=== PATIENT | female | born 1970 | race Caucasian/White ===

== ENCOUNTER 2020-08-27 23:21 | Emergency (ER) | payer BC, SELFPAY ==
--- NOTE | 2020-08-27 23:26 | W.ED.GENAD ---
Discharge Plan Disposition Patient Disposition: HOME Condition: Good Discharge Details Clinical Impression: Allergic reaction caused by a drug Primary Care Provider: Falguni,Local ED Provider: Scott Kimbroughs and New Rx's Prescriptions: New prednisone 20 mg tablet 40 mg PO DAILY Qty: 6 RF: 0 Continued sertraline 100 mg Tablet 100 mg PO DAILY RF: 0 fluticasone propionate 50 mcg/actuation [place],Suspension 2 spray INTRANASAL BID RF: 0 Breo Ellipta 200-25 mcg/dose Blister With Device 1 inh INHALATION DAILY RF: 0 Discharge Instructions Instructions: General Allergic Reaction (ED) Additional Instructions: Always read the labels of any future multisymptom medications you may take. Please hand picker your prescription for prednisone tomorrow morning. May take Benadryl 50 mg orally every 6 hours as needed for allergic symptoms. Follow-up with primary care when you return home if continued problems. Return to ED for any increasing shortness of breath, throat swelling, chest pain, syncope, other Medical Decision Making Patient presenting with allergic reaction to ibuprofen. She has Samter's triad with asthma, nasal polyps and aspirin/NSAID sensitivity. Did not realize she was taking ibuprofen. IV established. Benadryl, Pepcid, Solu-Medrol ordered. Will observe on monitor for. Currently no wheezing appreciated. 1 AM?marked improvement and patient feels back to normal. No further congestion/runny nose, facial swelling, tightening sensation improved. Vital signs remained normal. We will plan to discharge home at this time. Prednisone burst over the next 3 days. Benadryl 50 mg every 6 hours as needed as needed. Discussed reading all labels on medications before taking in the future. Return to ED if any issues while here, plans to return back home on Friday HPI General Mode of arrival: ambulatory. Date/Time Provider Initiated Documentation: 08/27/20 23:26. Limitations to Documentation: no limitations. Information obtained by: patient and RN notes reviewed. HPI Narrative: Patient presents to the ED with allergic reaction to ibuprofen. Patient took medication for allergies due to all the pollen in the air. She thought this was just Sudafed not realizing that it was a combination product. About an hour after taking this started to develop allergic reaction. She has known reaction to nonsteroidals and has the triad of nasal polyps, asthma and NSAID allergy. Patient now having runny nose/congestion, facial swelling, throat tightness, mild trouble breathing. She denies chest pain or lightheadedness. She has no GI symptoms. She did not take anything else at home prior to coming in. Related Data Home Medications Medication Instructions Recorded Confirmed sertraline 100 mg PO DAILY 08/27/20 08/28/20 Breo Ellipta 1 inh INHALATION DAILY 08/28/20 08/28/20 fluticasone propionate 2 spray INTRANASAL BID 08/28/20 08/28/20 prednisone 40 mg PO DAILY #6 tab 08/28/20 Previous Rx's Medication Instructions Recorded prednisone 40 mg PO DAILY #6 tab 08/28/20 Allergies Allergy/AdvReac Type Severity Reaction Status Date / Time NSAIDS (Non-Steroidal Allergy Severe Swelling/Ed Verified 08/27/20 23:49 Anti-Inflamma elda Penicillins Allergy Severe Verified 08/27/20 23:49 Review of Systems Narrative: As documented in HPI otherwise negative as below. Const: no fever, chills, weakness Resp: no cough, pleuritic pain CV: no CP, diaphoresis, syncope GI: no abdominal pain, nausea, vomiting, diarrhea Neuro: no headache, numbness, focal weakness, confusion [facility] Medical History Asthma Samter's triad Surgical History S/P sinus surgery Social History Smoking/Tobacco Use Status: Never Smoking risk assessment performed?: Yes Alcohol Intake: never Drug use: Never Substance use type: does not use Details: Has had both Phizer vaccines, second shot was about 1 month ago. Exam Narrative Exam Narrative: Const: WDWN female in NAD. HEENT: NC/AT. Mild facial swelling noted. Lips normal. Tongue normal. Mild uvula edema. Eyes: Normal conjunctiva and sclera. Neck: Supple. Trachea midline. Lungs: Normal respiratory effort. Lungs are clear. No wheezing. Cor: RRR without murmur/gallop. Good radial pulses. Neuro: A+O x 3. Normal speech, mentation, gait. Cranial nerves II - XII grossly intact. No gross motor or sensory deficit. Ext: No C/C/E. Skin: Warm and dry without rash.
[2020-08-27 23:27] VITALS: BP 138/84; PULSE 116; RESP 18; TEMP 36.6; O2SAT 96
[2020-08-27 23:30] VITALS: BP 138/84; PULSE 112; RESP 18; O2SAT 98
[2020-08-27] MEDS: diphenhydrAMINE 50 MG/ML VIAL IVP (23:52)
[2020-08-27] MEDS: FAMOTIDINE 20 MG/50 ML BAG 200 MG IVPB (23:56)
[2020-08-28] VITALS: BP 88/45; PULSE 121; RESP 18; O2SAT 96
[2020-08-28] MEDS: methylPREDNISolone SUCC 125 MG VIAL IVP (00:05)
[2020-08-28 00:50] VITALS: BP 104/56; PULSE 85; RESP 16; O2SAT 96
== END 2020-08-28 01:00 | disposition home or self-care (01) ==
PROVIDERS: Emergency Provider Emergency Medicine
DX: T39.315A Adverse effect of propionic acid derivatives, initial encounter (principal); R09.81 Nasal congestion; R22.0 Localized swelling, mass and lump, head; R09.89 Other specified symptoms and signs involving the circulatory and respiratory systems; R06.00 Dyspnea, unspecified
CPT/HCPCS: 96365; 96375; 99284; J1200; J2930